=== PATIENT | female | born 1980 ===

== ENCOUNTER 2021-06-16 08:20 | Emergency (ER) | payer MEDICAID, OTHER ==
--- NOTE | 2021-06-16 09:05 | Emergency Department Report ---
ED Lower Extremity HPI - General Chief Complaint: Extremity Injury, Lower Stated Complaint: ankle pain Time Seen by Provider: 06/16/21 08:41 Source: EMS Mode of arrival: Stretcher Limitations: No Limitations - History of Present Illness Initial Comments: Patient is a 40-year-old that comes to the ER after rolling her foot this morning she complains of right ankle pain. She is neurovascularly intact. Patient took a Percocet that she had at home prior to arrival. She is quite somnolent on arrival to fast track. She is a chronic pain patient and sees pain management every month. MD Complaint: ankle injury -: Sudden, hour(s) Injury: Ankle: Right Type of Injury: eversion Place: home - Related Data Previous Rx's Medication Instructions Recorded Last Taken Type Acetaminophen [Acetaminophen 8 650 mg PO Q8H PRN #25 tablet.er 06/16/21 Unknown Rx Hour] Ibuprofen [Motrin] 800 mg PO Q8HR PRN #30 tablet 06/16/21 Unknown Rx Allergies Allergy/AdvReac Type Severity Reaction Status Date / Time aspirin AdvReac Unknown Verified 06/16/21 08:21 ED Review of Systems ROS: Stated complaint: ankle pain Other details as noted in HPI Comment: All other systems reviewed and negative ED Past Medical Hx - Past Medical History Additional medical history: Chronic back pain, and pain management monthly, as of May 2021 - Medications Home Medications: Home Medications Medication Instructions Recorded Confirmed Last Taken Type Acetaminophen [Acetaminophen 8 650 mg PO Q8H PRN #25 tablet.er 06/16/21 Unknown Rx Hour] Ibuprofen [Motrin] 800 mg PO Q8HR PRN #30 tablet 06/16/21 Unknown Rx ED Physical Exam - General Limitations: No Limitations General appearance: alert, in no apparent distress - Head Head exam: Present: atraumatic, normocephalic - Eye Eye exam: Present: normal appearance - ENT ENT exam: Present: mucous membranes moist - Neck Neck exam: Present: normal inspection - Respiratory Respiratory exam: Present: normal lung sounds bilaterally. Absent: respiratory distress - Cardiovascular Cardiovascular Exam: Present: regular rate, normal rhythm. Absent: systolic murmur, diastolic murmur, rubs, gallop - GI/Abdominal GI/Abdominal exam: Present: soft, normal bowel sounds - Extremities Exam Extremities exam: Present: normal inspection - Expanded Lower Extremity Exam Right Knee exam: Present: normal inspection Lower Leg exam: Present: normal inspection Ankle exam: Present: tenderness, swelling Foot/Toe exam: Present: normal inspection (Over the lateral malleolus) - Back Exam Back exam: Present: normal inspection - Neurological Exam Neurological exam: Present: alert, oriented X3 - Psychiatric Psychiatric exam: Present: normal affect, normal mood - Skin Skin exam: Present: warm, dry, intact, normal color. Absent: rash ED Course Vital Signs 06/16/21 08:21 Temperature 97.6 F Pulse Rate 90 Respiratory 15 Rate Blood Pressure 126/68 [Right] O2 Sat by Pulse 98 Oximetry ED Lower Extremity MDM - Radiology Data Radiology results: report reviewed, image reviewed Small avulsion fracture lateral malleolar area - Medical Decision Making Vital Signs 06/16/21 08:21 Temperature 97.6 F Pulse Rate 90 Respiratory 15 Rate Blood Pressure 126/68 [Right] O2 Sat by Pulse 98 Oximetry X-ray noted. Posterior short leg splint and crutches. Patient educated on findings of x-ray, follow-up and pain management. Given that she is in a pain management program she is not being given narcotics here in the ER. She is to use [id number] Motrin and Tylenol in addition to her usual Percocet. Patient remains neurovascularly intact Patient discharged home with discharge plan of care including diet, activity, medications and follow-up. She verbalizes understanding of plan of care - Differential Diagnosis Rule out fracture Critical care attestation.: If time is entered above; I have spent that time in minutes in the direct care of this critically ill patient, excluding procedure time. ED Disposition Clinical Impression: Chronic pain Avulsion fracture of ankle Qualifiers: Encounter type: initial encounter Fracture type: closed Laterality: right Qualified Code(s): S82.891A - Other fracture of right lower leg, initial encounter for closed fracture Disposition: HOME / SELF CARE / HOMELESS Is pt being admited?: No Does the pt Need Aspirin: No Condition: Stable Instructions: Nondisplaced Fibular Ankle Fracture Treated With Immobilization, Adult Additional Instructions: Rest, ice, elevate foot Keep splint on until seen by Ortho. Use crutches to keep your weight off the foot Your usual home Percocet can be used for pain. You can also supplement as needed with Motrin or Tylenol. Follow-up with orthopedics in 48 hours. A referral has been given below. Referrals: TAYLA VEE MD [Primary Care Provider] - 3-5 Days MAHESH SANTOS MD [Staff Physician] - 3-5 Days Time of Disposition: 09:19
--- NOTE | 2021-06-16 09:07 | XRay Report ---
RIGHT ANKLE 3 VIEWS INDICATION / CLINICAL INFORMATION: pain sp rolling ankle COMPARISON: None available. FINDINGS: BONES / JOINT(S): There is a small avulsion fracture fragment distal to the tip of the lateral malleo leana. No ankle mortise widening is seen. SOFT TISSUES: There is mild soft tissue swelling. ADDITIONAL FINDINGS: None. IMPRESSION: Small avulsion fracture adjacent to the tip of the lateral malleolus. Signer Name: Clemente Marie MD Signed: 06/16/2021 9:02 AM Workstation Name: [id number]
[2021-06-16 09:39] VITALS: BP 111/54
== END 2021-06-16 09:58 | disposition home or self-care (01) ==
LOC: ED 08:20
DX: S82.891A Other fracture of right lower leg, initial encounter for closed fracture (principal); G89.4 Chronic pain syndrome; X58.XXXA Exposure to other specified factors, initial encounter; Y93.89 Activity, other specified; Y92.89 Other specified places as the place of occurrence of the external cause; Y99.8 Other external cause status
CPT/HCPCS: 99284